=== PATIENT | male | born 1975 | race Two or more races ===

== ENCOUNTER 2017-03-05 10:15 | Emergency (ER) | payer OTHER ==
[~2017-03-05] VITALS: Ht 172.7 cm; Wt 68.0 kg
[2017-03-05 10:15] VITALS: BP 123/62
== END 2017-03-05 11:41 | disposition home or self-care (01) ==
LOC: ER 10:17
DX: S09.90XA Unspecified injury of head, initial encounter (principal); X58.XXXA Exposure to other specified factors, initial encounter; Y93.71 Activity, boxing; Y92.89 Other specified places as the place of occurrence of the external cause; Y99.8 Other external cause status
CPT/HCPCS: A4606; Z7502; Z7610